=== PATIENT | male | born 1970 | race Hispanic/Latino ===

== ENCOUNTER 2025-01-07 09:44 | Day surgery (SDC) | payer OTHER ==
[2025-01-04 14:24] LABS: Absolute Basophils 0.1 K/uL (0-0.5); Absolute Eosinophils 0.1 K/uL (0-0.5); Absolute Lymphocytes (CBC) 2.9 K/uL (0.7-4.9); Absolute Monocytes 0.7 K/uL (0.1-1.3); Absolute Neutrophil 4.5 K/uL (1.8-8.0); Basophils % 0.7 % (0-1.3); Eosinophils % 1.3 % (0-4.4); Hematocrit 45.4 % (39.6-49.0); Lymphocytes % 35.5 % (15.3-44.8); MCH 30.1 pg (27.0-35.0); MCHC 35.2 g/dL (32.0-36.0); MCV 85.5 fL (80-100); MPV 8.1 fL (7.6-11.3); Monocytes % 7.9 % (3.3-12.3); Neutrophils % 54.6 % (41.7-73.7); Nucleated Red Blood Cells % 0.2 % (0-0); Platelets 283 thou/uL (152-406); RBC Red Blood Cell Count 5.31 M/uL (4.33-5.43); Red Cell Distribution Width 13.7 % (12.1-15.2)
[2025-01-04 14:37] LABS: Anion Gap 11.5 mEq/L (5.0-15.0); Potassium 3.5 mEq/L (3.5-5.1)
[2025-01-07] MEDS ORDERED: NA CHLORIDE 0.9% 1,000 ML ONE (10:16)
[2025-01-07] MEDS ORDERED: ONDANSETRON 4 MG/2 ML VIAL ONE (10:54)
[2025-01-07] MEDS ORDERED: NEOSTIGMINE 1 MG/ML -10 ML VIAL ONE (10:54)
[2025-01-07] MEDS ORDERED: LIDOCAINE 2% MPF 5 ML VIAL ONE (10:54)
[2025-01-07] MEDS ORDERED: MIDAZOLAM HCL 2 MG/2 ML INJ ONE (10:54)
[2025-01-07] MEDS ORDERED: propofoL 200 MG/20 ML VIAL IV ONE (10:54)
[2025-01-07] MEDS ORDERED: ROCURONIUM 50 MG/5 ML VIAL IV ONE (10:54)
[2025-01-07] MEDS ORDERED: GLYCOPYRROLATE 0.2 MG/ML SYR ONE (10:54)
[2025-01-07] MEDS ORDERED: FENTANYL CITR 100 MCG/2 ML ONE ×2 (10:54→13:44)
[2025-01-07] MEDS: CEFAZOLIN SODIUM 2 GM/VIAL ONE (11:45)
[2025-01-07] MEDS ORDERED: EPHEDRINE SULF 50 MG/ML VIAL ONE (11:58)
[2025-01-07] MEDS: LIDOCAINE HCL/EPINEPHRINE 20 ML MDV ONE (12:03)
[2025-01-07] MEDS: NA CHLORIDE 0.9% 1,000 ML ONE (13:31)
--- NOTE | 2025-01-07 14:29 | P.OP ---
Preoperative diagnosis: Bilateral Recurrent Inguinal Incarcerated Hernias Postoperative diagnosis: Bilateral Recurrent Inguinal Incarcerated Hernias Primary procedure: Open Bilateral Inguinal Hernia Repair with mesh Anesthesia: GETA + Local Estimated blood loss: <10cc Specimen: Hernia Contents, Cord Lipoma Findings: Severe scar tissue, prior mesh noted, anatomy obscured by scar Complications: None Implants: Bard Perfix Plug and patch, Medium on LEFT, Small on Right Transferred to: Recovery Room Condition: Good
[2025-01-07] MEDS: HYDROMORPHONE HCL 1 MG/ML INJ ONE ×2 (14:52→15:02)
[2025-01-07] MEDS ORDERED: HYDROCODONE/APAP 10/325 TAB PO ONE (15:05)
[2025-01-07 15:24] VITALS: TEMP 97.3
[2025-01-07] MEDS: HYDROCODONE/APAP 10/325 TAB ONE (15:35)
[2025-01-07 15:43] VITALS: BP 126/74; O2SAT 98
--- NOTE | 2025-01-08 01:07 | OP ---
Date of Procedure: 01/07/2025 Surgeon: Tylor Barry MD, Preoperative Diagnosis: Recurrent bilateral inguinal incarcerated hernias. Postoperative Diagnosis: Recurrent bilateral inguinal incarcerated hernias. Procedure Performed: Open bilateral inguinal hernia repair with mesh. Anesthesia: General endotracheal plus local 1% lidocaine with epinephrine. Estimated Blood Loss: Less than 10 cc. Specimens: Hernia contents, bilateral and cord lipoma, left. Findings: Severe scar noted from previous surgeries with prior mesh noted, most obvious in right ing uinal hernia repair. Mesh appeared to have migrated away from the normal anatomic position and the a natomy was obscured bilaterally by significant scar tissue obscuring the planes. Complications: None. Implants: Bard PerFix plug and patch hernia repair system, medium on the left and small on the right . Disposition: The patient was transferred to recovery room in good condition. Procedure In Detail: After informed consent was obtained, the patient was brought to the operating r oom, prepped and draped in usual sterile fashion. After adequate anesthesia was achieved, I began on the patient's left inguinal hernia. I dissected an inguinal incision down through significant scar tissue, through the Camper fat and Davina fascia. The external oblique aponeurosis was completely de stroyed and not obvious on examination. Through the dissection, I continued down to encircle the spe rmatic cord and structures, which were palpated by digitally reducing the testicle. After the sperma tic cord and structures were identified and visualized at this point, I encircled this with a [place] drain. I then circumferentially dissected out a hernia sac and reduced into the preperitoneal space , ultimately moving a previous mesh out of the way, which was a flat patch-type hernia mesh. At this point, I then dissected down to remove the spermatic cord lipoma. At this point, we sent off for pa thologic examination. The hernia was palpated at this point and after imbricating it within the prep eritoneal space, I deployed a medium Bard PerFix plug into the preperitoneal space, securing it circu mferentially around using 2-0 PDS sutures with good apposition of the mesh at this point in proper or ientation. At this point, the area was irrigated. I then placed the patch on the pubic tubercle and I secured to the undersurface of the inguinal ligament and the internal oblique aponeurosis. Tiera byrd, brian was significantly obscured as well, making it quite difficult to get adequate bites to this a sameera. However, 2-0 PDS sutures were used in this area. I reconstituted the deep inguinal ring with t he same said 2-0 PDS suture. I then closed Camper fat, Davina fascia, external oblique aponeurosis r emnants en bloc using a simple interrupted 3-0 Vicryl suture. The area was copiously irrigated once again. Deep dermal planes were closed using the same said 3-0 Vicryl suture and the skin was closed with a 4-0 Monocryl in running fashion. Dermabond was placed over top. I then turned my attention t o the right inguinal hernia. I dissected down through the subcutaneous plane after appropriately ane sthetizing the skin down through Camper fat and Davina fascia. The external oblique aponeurosis was once again obscured and significant scar tissue was appreciated throughout the entire procedure. The scar tissue was much heavier burden on the right side than the left obscuring the anatomy. There wa s no evidence of external oblique aponeurosis. I encircled the spermatic cord and structures in a si milar fashion after digitally reducing the testicle to allow for palpation of the vas deferens. I th en circumferentially dissected free the spermatic cord and structures from the hernia contents, which were found to be medial from a previous plug, which had apparently migrated somewhat out of the appr opriate position. After I ligated the preperitoneal fat, I then sent it off for pathologic examinati on after appropriately ligating it using a 3-0 Vicryl suture. I then reduced the hernia contents erica k to the preperitoneal space and deployed a small Bard PerFix plug into the preperitoneal space. At this point, secured it circumferentially around using the same said 2-0 PDS suture in interrupted fas hion. I then irrigated the area and placed the patch on the pubic tubercle medially once again and i n a similar fashion to the other side, I secured it to the shelving edge of the internal oblique apon eurosis and the undersurface of the inguinal ligament. However, once again the anatomy was significa ntly obscured at this point. As such, I reconstituted the deep inguinal ring using a 2-0 PDS suture. The area was copiously irrigated once again and I closed the external oblique aponeurosis, Camper f at, and Davina fascia en bloc using the same said 3-0 Vicryl suture in interrupted fashion. Deep comfort mal plane was closed with the same said 3-0 Vicryl suture in interrupted fashion. Skin was closed wi th 4-0 Monocryl in a running fashion. Dermabond was placed over top. The patient tolerated procedur e without incident or complication, transferred to PACU in good condition. All counts were correct a t the end of the case. GUERITA/FAINA Voice ID: [id number] Report ID: [id number]
== END 2025-01-07 19:33 | disposition home or self-care (01) ==
LOC: OR 09:44
PROVIDERS: ATTEND Surgery
PROC: 0YUA0JZ Supplement Bilateral Inguinal Region with Synthetic Substitute, Open Approach (ICD-10-PCS; principal; 2025-01-07 12:00)
DX: K40.01 Bilateral inguinal hernia, with obstruction, without gangrene, recurrent (principal); I10 Essential (primary) hypertension; E11.65 Type 2 diabetes mellitus with hyperglycemia
CPT/HCPCS: 93005; 85025; 80048; 36415; 82947 ×2; 88302; 49521; J2704; J2710; J2003; J2250; J3010 ×2; J1171 ×2; J2405; J7030 ×2